=== PATIENT | male | born 1945 | race Caucasian/White ===

== ENCOUNTER 2017-01-30 06:02 | Day surgery (SDC) | payer MEDICARE ==
[~2017-01-30 06:02] MED LIST: Buffered Lidocaine 0.9% SYRIN* 5 ML/SYR SYRINGE INTRADERM ONE
[2017-01-30] MEDS ORDERED: ceFAZolin 2 GM PREMIX (*) 2 GM/50 ML BAG IVPB ONE (06:10)
[2017-01-30] MEDS ORDERED: Bupivacaine 0.25% W/EPI* 50 ML VIAL ONE (07:02)
[2017-01-30] MEDS ORDERED: Methylene Blue 0.5 %* 50 MG/10 ML AMP IV ONE (07:02)
[2017-01-30] MEDS ORDERED: Mineral Oil Sterile, TOPICAL* 25 ML BTL ONE (07:03)
[2017-01-30] MEDS ORDERED: Lidocaine 1.5% EPI 1:200,000* 30 ML SDV ONE (07:08)
[2017-01-30] MEDS ORDERED: BSS OPTH.SOL* BTL ONE (07:51)
[2017-01-30] MEDS ORDERED: fentaNYL* 50 MCG/ML 2 ML VIAL (100 MCG VIAL) ONE (07:53)
[2017-01-30] MEDS ORDERED: Midazolam* 1 MG/ML 2 ML VIAL (2 MG) ONE (07:53)
[2017-01-30] MEDS ORDERED: Propofol* 10 MG/ML 20 ML BTL IV PUSH ONE ×3 (08:04→11:07)
[2017-01-30] MEDS ORDERED: Lidocaine 2% PF * 5 ML VIAL ONE (08:04)
[2017-01-30 13:32] VITALS: BP 134/74
== END 2017-01-30 13:37 | disposition home or self-care (01) ==
LOC: OR 06:02
PROVIDERS: ATTEND Plastic Surgery
DX: C44.319 Basal cell carcinoma of skin of other parts of face (principal); L82.1 Other seborrheic keratosis; I48.91 Unspecified atrial fibrillation; Z79.01 Long term (current) use of anticoagulants; G47.30 Sleep apnea, unspecified; Z87.891 Personal history of nicotine dependence; N18.9 Chronic kidney disease, unspecified
CPT/HCPCS: 88305; 88331; 88332; A9270-GY; J0690; J2250; J2704; J3010

== ENCOUNTER 2017-01-30 23:28 | Observation (INO) | payer MEDICARE ==
[2017-01-31] MEDS ORDERED: Midazolam* 1 MG/ML 5 ML VIAL (5 MG) ONE (00:21)
[2017-01-31] MEDS ORDERED: ceFAZolin 2 GM PREMIX(*) 2 GM/50 ML BAG IVPB ONE (00:31)
[2017-01-31] MEDS ORDERED: fentaNYL* 50 MCG/ML 2 ML VIAL (100 MCG VIAL) ONE ×2 (00:35→01:11)
[2017-01-31] MEDS ORDERED: Lidocaine 2% EPI 1:200000 MPF* 20 ML VIAL ONE (00:40)
[2017-01-31] MEDS ORDERED: Tetracaine 0.5% OPTH.SOL 15ML* BTL ONE (01:55)
[2017-01-31] MEDS ORDERED: Midazolam* 1 MG/ML 2 ML VIAL (2 MG) ONE (02:04)
[2017-01-31] MEDS ORDERED: Ondansetron INJ* 2 MG/ML VIAL IV PRN ×2 (02:32→04:16)
[2017-01-31] MEDS ORDERED: DiMENhydriNATE IV* 50 MG/ML VIAL IV PUSH PRN (02:32)
[2017-01-31] MEDS ORDERED: fentaNYL* 50 MCG/ML 2 ML VIAL (100 MCG VIAL) IV PRN (02:32)
[2017-01-31] MEDS ORDERED: HYDROcodone/ACETAMIN 5-325 MG* 1 TAB PO PRN (02:32)
[2017-01-31] MEDS ORDERED: Artificial Tear OPHTH.OINT* 3.5 GM ONE (02:51)
[2017-01-31] MEDS ORDERED: HYDROmorphone* 1 MG/ML 1 ML SYR IV PRN (04:16)
[2017-01-31] MEDS ORDERED: Acetaminophen SUPP* 650 MG SUPP PR PRN (04:16)
[2017-01-31] MEDS ORDERED: Albuterol 2.5 MG/3 ML NEB.SOL* (0.083%) INH PRN (04:16)
[2017-01-31] MEDS ORDERED: NS 0.9% 1000 ML* 1,000 ML IV SCH (04:30)
--- NOTE | 2017-01-31 04:43 | HP ---
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 He is seen upon arrival to the surgical stay unit and denies complaints. Pain is controlled, no nausea, or other issues. Per Dr Fabian, ophthalmology has evaluated the patient without clinically relevant finding. PMedHx AFIB s/p ablation aortic stenosis, planning surgery HLD MELVIN on CPAP OA B knees Ambulatory Orders Metoprolol Tartrate [Lopressor] 50 mg PO QAM 05/07/15 Rosuvastatin Calcium [Crestor] 20 mg PO EVERY OTHER DAY 05/07/15 Warfarin TAB(*) [Coumadin TAB(*)] 5 tab PO QPM 05/07/15 celeCOXIB CAP* [Celebrex CAP*] 100 mg PO DAILY PRN 05/07/15 Potassium Chlor TAB* [Potassium Chlor TAB 20 MEQ*] 20 mcg PO QAM 09/11/15 Spironolactone TAB* [Aldactone TAB 25 MG*] 25 mg PO SEE INSTRUCTIONS 09/11/15 Diazepam TAB(*) [Valium TAB(*)] 10 mg PO Q8H PRN 12/06/16 Dofetilide CAP* [Tikosyn CAP*] 125 mcg PO BID 12/06/16 Torsemide TAB* [Demadex*] 20 mg PO SEE INSTRUCTIONS 12/06/16 Allergies No Known Allergies Allergy (Verified 01/23/17 11:50) PSurgHx ORIF RUE cardiac ablation R facial BCC excision with flap reconstruction 01/30/2017 R facial hematoma evacuation 01/31/2017 SocHx: former smoker, no alcohol or recreational drugs; , lives with his ; practicing dentist; full code status FamHx: positive for CAD, CVA, HTN ROS: as above, otherwise reviewed and all were negative Constitutional: NAD, normally developed, overweight white male vitals: Vital Signs Temp 37.1 C 01/31/17 03:05 Pulse 79 01/31/17 03:15 Resp 16 01/31/17 04:23 BP 135/75 01/31/17 03:15 Pulse Ox 96 01/31/17 03:05 Intake & Output 01/30/17 01/30/17 01/31/17 11:59 23:59 11:59 Intake Total 2200 Output Total 200 Balance 2000 Intake: IV Fluids 2200 NS 200 lr 1999 Output: Estimated Blood Loss 200 HEENM: post-op dressings clean & dry; blephara: acute ecchymosis R; hearing: clinically intact; oropharynx: clear, mucosa moist Neck: soft tissue: non-tender; thyroid: unable to examine 2nd dressings Pulmonary: clear to auscultation bilaterally, good aeration, no accessory muscle use CV: RR/RR, normal S1S2, 2/5 systolic murmur, no jugular venous distention, 2+ B DP/PT, no edema Abdominal: soft, non-distended, non-tender, no rebound/guarding/rigidity, normoactive bowel sounds, no hepatosplenomegaly or masses, no costovertebral angle tenderness Musculoskeletal: general: grossly intact; gait: stable Integumental: as above, otherwise normal appearance and texture of exposed skin Psychiatric orientation: AA&O to PPS affect: calm mood: pleasant eye contact: good content: reliable responses: timely insight: good Testing: Lab Results 01/31/17 Range/Units 00:09 INR (Anticoag Therapy) 1.07 (0.89-1.11) Impression: 71M presenting from Katia Fabian MD's office for post-op basal cell excision complicated by hemorrhage requiring exploration, evacuation, & hemostasis DIAGNOSIS & PLAN Primary post-op basal cell excision complicated by hemorrhage requiring exploration, evacuation, & hemostasis : pain control : Katia Fabian MD plastic surgery managing; anticipates D/C home in AM Secondary AFIB : continue meds once reconciled : restart warfarin deferred to surgery HLD : continue rosuvastatin once reconciled MELVIN : unable to use CPAP until incision healed Admission Rational: observation for post-op hematoma formation DVTp: SCDs Code Status: full HCP:
[2017-01-31] MEDS: Pantoprazole IV* 40 MG IV SCH (09:20)
--- NOTE | 2017-01-31 09:35 | PN ---
Subjective Date of Service: 01/31/17 Interval History: Patient seen and examined at bedside. Pt states that he is feeling well this AM. Denies fever, chills, shortness of breath, chest discomfort, N/V/D. Pt is able to open his right eye a small amount with his fingers and notes some blurry vision. He states that the swelling in his face has improved. Family History: Unchanged from Admission Social History: Unchanged from Admission Past Medical History: Unchanged from Admission Objective Active Medications: Acetaminophen (Tylenol Supp*) 650 mg [place] Q6H PRN Reason: FEVER/PAIN Albuterol (Ventolin 2.5 Mg/3 Ml Neb.Erika*) 2.5 mg INH Q2H PRN Reason: SOB/ WHEEZING Hydromorphone HCl (Dilaudid Iv*) 0.5 mg IV Q4H PRN Reason: PAIN Sodium Chloride (Ns 0.9% 1000 Ml*) 1,000 mls @ 100 mls/hr IV PER RATE [facility] Ondansetron HCl (Zofran Inj*) 4 mg IV Q6H PRN Reason: NAUSEA Pantoprazole Sodium (Protonix Iv*) 40 mg IV DAILY [facility] Vital Signs 01/31/17 01/31/17 01/31/17 03:00 03:05 03:15 Temperature 98.8 F 98.8 F Pulse Rate 80 85 79 Respiratory 12 16 16 Rate Blood Pressure 147/83 149/85 135/75 (mmHg) O2 Sat by Pulse 96 96 Oximetry 01/31/17 01/31/17 01/31/17 03:40 04:23 05:48 Temperature 98.9 F 98.3 F Pulse Rate 79 74 Respiratory 16 16 16 Rate Blood Pressure 134/56 160/89 (mmHg) O2 Sat by Pulse 96 95 Oximetry 01/31/17 01/31/17 01/31/17 06:31 07:39 08:30 Temperature 98.2 F 98.6 F Pulse Rate 92 79 82 Respiratory 16 11 16 Rate Blood Pressure 159/95 131/71 (mmHg) O2 Sat by Pulse 95 96 95 Oximetry Oxygen Devices in Use Now: None Appearance: NAD, sitting up in bed Eyes: - - Unable to open right eye due to swelling Ears/Nose/Mouth/Throat: Mucous Membranes Moist Respiratory: Symmetrical Chest Expansion and Respiratory Effort, Clear to Auscultation Cardiovascular: RRR, - - Grade 2-3/6 systolic murmur heard at the right sternal border, radiating across the precordium Abdominal: NL Sounds; No Tenderness; No Distention Extremities: No Edema Skin: No Rash or Ulcers, - - Large amount of ecchymosis to right side of face, geraldo drain in place Neurological: Alert and Oriented x 3, NL Muscle Strength and Tone Lines/Tubes/Other Access: Clean, Dry and Intact Peripheral IV - site benign Nutrition: Taking PO's Result Diagrams: 01/31/17 10:14 01/31/17 10:14 Assess/Plan/Problems-Billing Assessment: Mr. Cee is a 71 yo male with PMH significant for Afib, aortic stenosis, HLD, MELVIN, and basal cell CA who was S/P excision of basal cell CA from right cheek on 01/30/17 and returned for a postoperative hemorrhage and is now S/P exploration and evacuation of hematoma. - Patient Problems (1) Basal cell carcinoma of cheek Code(s): C44.319 - BASAL CELL CARCINOMA OF SKIN OF OTHER PARTS OF FACE SNOMED Code(s): 632201280 Comment: - S/P excision complicated by hemorrhage requiring exploration, evacuation and hemostasis - POD, management per Dr. Fabian - Pain management (2) Afib Code(s): I48.91 - UNSPECIFIED ATRIAL FIBRILLATION SNOMED Code(s): 30260721 Comment: - Heart rate controlled - Resume warfarin when ok per surgery - Continue Metoprolol and Tikosyn (3) HLD (hyperlipidemia) Code(s): E78.5 - HYPERLIPIDEMIA, UNSPECIFIED SNOMED Code(s): 86614166 Comment: - Continue statin (4) MELVIN (obstructive sleep apnea) Code(s): G47.33 - OBSTRUCTIVE SLEEP APNEA (ADULT) (PEDIATRIC) SNOMED Code(s): 41510533 Comment: - Unable to use CPAP until incision is healed (5) DVT prophylaxis Code(s): HDG1621 - SNOMED Code(s): 729518778 Comment: - SCDs (6) Full code status Code(s): Z78.9 - OTHER SPECIFIED HEALTH STATUS SNOMED Code(s): 987937621 Status and Disposition: OBV. Disposition per surgery. Discharge to home when medically stable, possibly in the morning.
[2017-01-31 10:21] LABS: Hematocrit 33 % (42-52); Hemoglobin 10.6 g/dl (14.0-18.0); Mean Corpuscular HGB Conc 32 g/dl (31-36); Mean Corpuscular Hemoglobin 28 pg (27-31); Mean Corpuscular Volume 87 fL (80-94); Mean Platelet Volume 8 um3 (7.4-10.4); Red Blood Count 3.77 10^6/ul (4.0-5.4); Red Cell Distribution Width 15 % (10.5-15); White Blood Count 8.6 10^3/ul (3.5-10.8)
[2017-01-31] MEDS ORDERED: Spironolactone TAB* 25 MG PO SCH ×2 (10:30)
[2017-01-31] MEDS: Dofetilide CAP* 125 MCG PO SCH ×2 (10:38→21:13)
[2017-01-31] MEDS: Metoprolol Succinate XL TAB* 50 MG PO SCH (10:39)
[2017-01-31 10:42] LABS: BUN/Creatinine Ratio 16.7 (8-20); Calcium 8.6 mg/dL (8.6-10.3); EGFR African American 99.6 (>60); EGFR Non-African American 77.4 (>60); Potassium 4.1 mmol/L (3.5-5.0)
[2017-01-31] MEDS ORDERED: Mupirocin 2% OINT* TUBE TOPICAL SCH (11:00)
--- NOTE | 2017-01-31 17:03 | CONS ---
PLASTIC SURGERY PROGRESS NOTE: DATE: 01/31/17 SUBJECTIVE: The patient reports minimal pain in the right cheek and lower lid area. He has had some oozing from the region of the drain site behind the right ear. He has urinated twice. He reports that when he lifts right upper eye lid, he can see with his right eye. OBJECTIVE: The patient is noted to be alert and cooperative, in no acute distress. Vital Signs: Stable except for mild hypertension. Examination of the facial area demonstrates moderately severe ecchymosis and swelling of the right periorbital area and right cheek, but the eyelids and cheek are soft. There is moderate bloody drainage on the dressing around the retroauricular [place] drain site noted. No active bleeding is noted. INR from last night was 1.03. IMPRESSION: The patient is status post exploration and drainage of postop hematoma, his right cheek and lower eyelid late last night, early this morning. He is progressing satisfactorily. RECOMMENDATIONS: I have recommended that he continue to keep his head elevated and restrict activity. I have written wound care orders. Coumadin is still being held for now. I recommend to continue to keep him in the hospital today for observation and with plans for probable discharge tomorrow. Medical management per the hospitalist service. [id number]/[facility] #: [id number] ZARI
[2017-01-31] MEDS: Mupirocin 2% OINT* TUBE TOPICAL SCH (21:18)
[2017-02-01 05:29] LABS: Hematocrit 32 % (42-52); Hemoglobin 10.4 g/dl (14.0-18.0)
[2017-02-01 05:30] LABS: Comments Flag Yes
--- NOTE | 2017-02-01 05:35 | OP ---
CC: Dr. Helm; Dr. Calles OPERATIVE REPORT: DATE OF OPERATION: 01/31/17 DATE OF : 47 SURGEON: Rodolfo Fabian MD ANESTHESIOLOGIST: Dr. Fatima. ANESTHESIA: Local, MAC. PRE-OP DIAGNOSIS: Postoperative hematoma, right cheek and eyelids. POST-OP DIAGNOSIS: Postoperative hematoma, right cheek and eyelids. OPERATIVE PROCEDURE: Exploration and drainage of hematoma, right cheek and lower eyelid. ESTIMATED BLOOD LOSS: 200 cc. SPECIMENS: None. DRAINS: One small [place] drain. FLUIDS GIVEN: 2 L crystalloid. INDICATION OF SURGERY: The patient is a 71-year-old white male with history of atrial fibrillation, on Coumadin, who presented with a moderate size basal cell carcinoma in his right medial infraorbit al cheek area. I took him to the operating room on 01/30/17 and did a 3-stage excision of the basal cell carcinoma with frozen sections, resulting in extensive defect in the right medial lower eyelid and infraorbital cheek area. This was reconstructed with a cervicofacial flap. The patient's INR on 01/29/17 was approximately 1.2. Intraoperatively, there appeared to be a normal amount of oozing from the raw surfaces. Satisfactory hemostasis was obtained at the end of the procedure. Patient had some mild oozing from the incision lines in the recovery room, but this was felt to be normal. Patient was discharged home. He called me later in the afternoon complaining of some increased swel ling in the lower eyelid. He stated that the eyelid was starting to swell shut. He denied any pain in the eye or visual disturbance. He stated that the swelling was soft and spongy. He called me l ater that night, however, with worsening swelling and bruising and the eyes swollen shut. I had him come to my office and examined him. There was extensive diffuse swelling and ecchymosis of the upp er and lower eyelids and right cheek, which was moderately firm, consistent with a hematoma. He was sent to [facility] Emergency Room and then taken to the operating room for exploration a nd drainage of the hematoma. DESCRIPTION OF PROCEDURE: Patient was brought to the operating room and placed in the supine positi on. Intravenous sedation was given by Dr. Fatima. The facial area was prepped with Betadine and dr love sterilely. Sutures were removed from the incision lines on the cheek and eyelid. Extensive am ount of clotted blood was evacuated under the entire flap. A small pulsatile arterial bleeder was i dentified, probably a branch of the facial artery, lateral to the mid nose level. This was controlle d with suture ligatures of 4-0 Vicryl. There was some diffuse oozing of the wound margins and wound base and undersurface of the flap as well. This was controlled with electrocautery. Patient had ex tensive circumferential chemosis of the right eye, but still had vision present and denied eye pain. An intraoperative ophthalmology consultation was obtained with Dr. Jw Helm, who came to the operating room and examined the patient and performed tonometry with a Maksim-Pen. The measurements were 26, 27, and 22 mmHg in the right eye. Dr. Helm felt that these were basically normal press ures and did not feel that the patient needed a lateral canthotomy or inferior cantholysis. Wound w as irrigated with copious saline solution. Hemostasis was obtained with fine-point bipolar electroc autery and Floseal. The flap was then rotated back into position and sutured with buried fascial alexander bcutaneous and deep dermal sutures of 4-0 and 5-0 Vicryl. Because of the amount of swelling and yoshi ma, I was not able to close the medial [place]hal area and ended up leaving an approximately 1 x 2.5 cm area open. Skin was closed in the remaining areas with running and interrupted sutures of 6-0 and 5 -0 nylon. A small Josh drain was placed on to the flap and brought out through small incision in the retro-lobular area of the neck. Hemostasis was noted to be satisfactory. The wounds were dres sed with Xeroform gauze, fluff gauze, and circumferential head wrap dressing. The patient tolerated the procedure well. There were no complications. All counts were reported as correct in the procedure. Patient was taken to the recovery area in stable postoperative condition . [id number]/[facility] #: [id number]
[2017-02-01 08:00] VITALS: BP 119/67
[2017-02-01] MEDS: Pantoprazole IV* 40 MG IV SCH (08:40)
[2017-02-01] MEDS: Mupirocin 2% OINT* TUBE TOPICAL SCH (08:44)
[2017-02-01] MEDS: Dofetilide CAP* 125 MCG PO SCH (08:44)
[2017-02-01] MEDS: Metoprolol Succinate XL TAB* 50 MG PO SCH (08:44)
[2017-02-01] MEDS ORDERED: Potassium Chlor TAB* 20 MEQ TAB.ER PO SCH (09:00)
--- NOTE | 2017-02-01 11:30 | PN ---
Subjective Date of Service: 02/01/17 Interval History: Patient seen and examined at bedside. Pt states that he is feeling well. Denies fever, chills, shortness of breath, chest discomfort, N/V/D. Pt feels that the swelling to the right side of his face has improved. Family History: Unchanged from Admission Social History: Unchanged from Admission Past Medical History: Unchanged from Admission Objective Active Medications: Acetaminophen (Tylenol Supp*) 650 mg [place] Q6H PRN Reason: FEVER/PAIN Albuterol (Ventolin 2.5 Mg/3 Ml Neb.Erika*) 2.5 mg INH Q2H PRN Reason: SOB/ WHEEZING Atorvastatin Calcium (Lipitor*) 40 mg PO EVERY OTHER DAY@0900 [facility] Dofetilide (Tikosyn Cap*) 125 mcg PO BID [facility] Hydromorphone HCl (Dilaudid Iv*) 0.5 mg IV Q4H PRN Reason: PAIN Sodium Chloride (Ns 0.9% 1000 Ml*) 1,000 mls @ 100 mls/hr IV PER RATE [facility] Metoprolol Succinate (Toprol Xl Tab*) 50 mg PO DAILY [facility] Mupirocin (Bactroban 2 % Oint*) 1 applic TOPICAL BID [facility] Ondansetron HCl (Zofran Inj*) 4 mg IV Q6H PRN Reason: NAUSEA Pantoprazole Sodium (Protonix Iv*) 40 mg IV DAILY [facility] Potassium Chloride (Klor Con Er Tab*) 20 meq PO QAM [facility] Spironolactone (Aldactone Tab*) 25 mg PO SuWe@0900 [facility] Torsemide (Demadex*) 20 mg PO TuFr@0900 [facility] Vital Signs 01/31/17 01/31/17 01/31/17 15:26 19:37 20:25 Temperature 98.8 F 98.8 F Pulse Rate 73 82 Respiratory 16 16 16 Rate Blood Pressure 125/74 128/71 (mmHg) O2 Sat by Pulse 98 98 Oximetry 01/31/17 02/01/17 02/01/17 23:58 02:11 03:19 Temperature 98.7 F 98.7 F Pulse Rate 74 16 79 Respiratory 18 98 18 Rate Blood Pressure 127/70 135/76 (mmHg) O2 Sat by Pulse 95 98 94 Oximetry 02/01/17 02/01/17 02/01/17 07:42 08:00 08:01 Temperature 98.5 F Pulse Rate 81 81 Respiratory 13 13 13 Rate Blood Pressure 119/67 (mmHg) O2 Sat by Pulse 95 95 95 Oximetry Oxygen Devices in Use Now: None Appearance: NAD, sitting up in bed Ears/Nose/Mouth/Throat: Mucous Membranes Moist Respiratory: Symmetrical Chest Expansion and Respiratory Effort, Clear to Auscultation Cardiovascular: NL Sounds; No Murmurs; No JVD, RRR Abdominal: NL Sounds; No Tenderness; No Distention Extremities: No Edema Skin: No Rash or Ulcers, - - Ecchymosis to right side of face, Incision to right cheek well approximated with sutures intact Neurological: Alert and Oriented x 3, NL Muscle Strength and Tone Nutrition: Taking PO's Result Diagrams: 02/01/17 05:18 01/31/17 10:14 Assess/Plan/Problems-Billing Assessment: Mr. Cee is a 71 yo male with PMH significant for Afib, aortic stenosis, HLD, MELVIN, and basal cell CA who was S/P excision of basal cell CA from right cheek on 01/30/17 and returned for a postoperative hemorrhage and is now S/P exploration and evacuation of hematoma. - Patient Problems (1) Basal cell carcinoma of cheek Code(s): C44.319 - BASAL CELL CARCINOMA OF SKIN OF OTHER PARTS OF FACE SNOMED Code(s): 106158709 Comment: - S/P excision complicated by hemorrhage requiring exploration, evacuation and hemostasis - POD #1, management per Dr. Fabian - HH stable - Pain management (2) Afib Code(s): I48.91 - UNSPECIFIED ATRIAL FIBRILLATION SNOMED Code(s): 45393551 Comment: - Heart rate controlled - Resume warfarin tonight, check INR on Sunday - Continue Metoprolol and Tikosyn (3) HLD (hyperlipidemia) Code(s): E78.5 - HYPERLIPIDEMIA, UNSPECIFIED SNOMED Code(s): 41065094 Comment: - Continue statin (4) MELVIN (obstructive sleep apnea) Code(s): G47.33 - OBSTRUCTIVE SLEEP APNEA (ADULT) (PEDIATRIC) SNOMED Code(s): 58259498 Comment: - Unable to use CPAP until incision is healed (5) DVT prophylaxis Code(s): PCW0367 - SNOMED Code(s): 215563397 Comment: - SCDs (6) Full code status Code(s): Z78.9 - OTHER SPECIFIED HEALTH STATUS SNOMED Code(s): 535858702 Status and Disposition: OBV. Disposition per surgery. Stable for discharge to home today.
--- NOTE | 2017-02-02 05:13 | DS ---
CC: Dr. Rodolfo Fabian; Dr. Jw Helm; Dr. Mukesh Calles * DISCHARGE SUMMARY: DATE OF ADMISSION: 01/31/17 DATE OF DISCHARGE: 02/01/17 ATTENDING PHYSICIAN: Dr. James Lin *(dictated by Ann Ignacio NP) PRIMARY CARE PHYSICIAN: Dr. Mukesh Calles. PRIMARY DIAGNOSES: Status post excision of basal cell carcinoma from the right cheek with postoperative hemorrhage, status post exploration, evacuation, and hemostasis by Dr. Fabian. SECONDARY DIAGNOSES: 1. Atrial fibrillation. 2. Aortic stenosis. 3. Hyperlipidemia. 4. Obstructive sleep apnea. 5. Osteoarthritis. CONSULTATIONS WHILE IN THE HOSPITAL: 1. Dr. Jw Helm with Ophthalmology. 2. Dr. Rodolfo Fabian with Plastic Surgery. PROCEDURE WHILE IN THE HOSPITAL: Status post exploration and drainage of hematoma of the right cheek and lower eyelid on 01/31/[address] Fabian. DISCHARGE MEDICATIONS: New home medication: Mupirocin 2% ointment apply topical twice daily to right cheek. Continued home medications: 1. Celebrex 100 mg oral daily as needed for pain. 2. Warfarin 5 mg oral every evening. 3. Crestor 20 mg oral every other day. 4. Spironolactone 25 mg oral on Sundays and Wednesdays. 5. Potassium chloride 20 mEq oral every morning. 6. Torsemide 20 mg oral daily on Tuesdays and Fridays. 7. Diazepam 10 mg oral every 8 hours as needed for anxiety. 8. Tikosyn 125 mcg oral twice daily. 9. Acetaminophen 650 mg oral every 6 hours as needed for pain. 10. Metoprolol succinate 50 mg oral daily. HISTORY OF PRESENT ILLNESS: Mr. Cee is a 71-year-old male with past medical history significant for atrial fibrillation, aortic stenosis, hyperlipidemia, obstructive sleep apnea, who presented to the hospital for excision of a basal cell carcinoma on his right cheek and reconstruction. Postoperatively, the patient developed a hematoma requiring the patient to return to the operating room for exploration and evacuation, and hemostasis. The surgical procedure was performed by Dr. Fabian and the patient was also evaluated by Dr. Jw Helm with Ophthalmology to evaluate the patient's eye. The patient's swelling improved over the course of his admission, although he had a large amount of ecchymosis to the right side of his face. The patient's pain was controlled. He was monitored overnight and felt to be stable for discharge and per Plastic Surgery, it was okay to resume his warfarin. The patient's periorbital hematoma has decreased in size during his stay. He was also seen and followed up again last evening by Dr. Helm. The patient is able to open his eye manually with his fingers and states that he does have some mild blurry vision through his right eye. Mr. Cee is stable for discharge to home today. Vital signs are as follows: Temperature 98.5, heart rate 81, respiratory rate 13, O2 sat 95% on room air, blood pressure 119/67. DISCHARGE PLAN: Mr. Cee will be discharged to home. ACTIVITY: Light activity as tolerated. DIET: Regular diet. The patient has a followup appointment with Dr. Fabian for suture removal on 02/05/17, at 4:45 p.m. He also has an appointment with Dr. Helm with Ophthalmology on 02/05/17, at 3:15 p.m. to evaluate his eye due to the periorbital hematoma. The patient should be seen by his primary care provider in the next 2 weeks. He has been asked to call to setup an appointment with Dr. Calles. The patient as far as his atrial fibrillation has been continued on his home metoprolol and Tikosyn and has resumed his warfarin. He has been instructed to get an INR checked on Sunday and await results from Dr. Quintanilla's office before he takes a his Sunday does of Warfarin. The patient 's has been instructed to follow the face and eyelid surgery instructions that were given to him at [facility]Day Surgery on 01/30/17. The patient has been asked to return to the emergency room for any shortness of breath or chest discomfort. This is a summarized report of a complex medical history and hospital stay. For further details, please see the entire medical record. TIME SPENT: Time for this discharge was approximately 45 minutes and greater than half of that was spent with the patient discussing discharge plans and instructions. CONDITION ON DISCHARGE: Stable. Reviewed by JAYMIE ARIAS 02/02/17 1800 [id number]/[facility] #: [id number] ZARI
[2017-02-02] MEDS ORDERED: Torsemide TAB* 20 MG PO SCH (09:00)
[2017-02-02] MEDS ORDERED: Atorvastatin* 40 MG TAB PO SCH (09:00)
== END 2017-02-01 12:17 | disposition home or self-care (01) ==
LOC: OR 23:28 → SSU 01-31 03:49
PROVIDERS: ADMIT Plastic Surgery; ATTEND Plastic Surgery
DX: L76.32 Postprocedural hematoma of skin and subcutaneous tissue following other procedure (principal); I35.0 Nonrheumatic aortic (valve) stenosis; I48.91 Unspecified atrial fibrillation; Z79.01 Long term (current) use of anticoagulants; G47.33 Obstructive sleep apnea (adult) (pediatric)
CPT/HCPCS: 36415; 80048; 85014; 85018; 85025; 85610; 94760; A9270-GY; G0378; J0690; J2250; J3010

== ENCOUNTER → 2017-07-01 16:29 | Emergency (ER) | payer BC, MEDICARE ==
[~2017-07-01 16:29] MED LIST changes: -Buffered Lidocaine 0.9% SYRIN* 5 ML/SYR SYRINGE INTRADERM ONE; +Phytonadione INJ (Adult)* 10 MG/ML 1 ML AMP IM ONE; +Phytonadione INJ (Adult)* 10 MG/ML 1 ML AMP IV ONE; +Phytonadione INJ* 1 MG/0.5 ML ML IM ONE
[2017-07-01 17:20] LABS: ABS Basophils 0 10^3/ul (0-0.2); ABS Eosinophils 0.1 10^3/ul (0-0.6); ABS Lymphocytes 0.6 10^3/ul (1.0-4.8); ABS Monocytes 0.6 10^3/ul (0-0.8); ABS Neutrophils 5.2 10^3/ul (1.5-7.7); ABS Nucleated RBC 0.01 10^3/ul; Hematocrit 16 % (42-52); Lymphocyte % 9.6 % (25-47); Mean Corpuscular HGB Conc 32 g/dl (31-36); Mean Corpuscular Hemoglobin 25 pg (27-31); Mean Corpuscular Volume 79 fL (80-94); Mean Platelet Volume 7 um3 (7.4-10.4); Nucleated Red Blood Cells % 0.1; Platelet Count 212 10^3/ul (150-450); Red Blood Count 2.05 10^6/ul (4.0-5.4); Red Cell Distribution Width 18 % (10.5-15); White Blood Count 6.5 10^3/ul (3.5-10.8)
[2017-07-01 17:27] LABS: Hemoglobin 5.2 g/dl (14.0-18.0)
--- NOTE | 2017-07-01 17:29 | RAD ---
INDICATION: Chest pressure COMPARISON: Similar chest x-ray dated January 21, 2015 TECHNIQUE: Single AP portable view of the chest was obtained. FINDINGS: Image quality is compromised due to the relative inferiority of a portable chest x-ray. The heart and mediastinum exhibit normal size and contour. The lungs are grossly clear. There is no evidence of a large pleural effusion. There is gas seen beneath the heart crossing the midline upper abdomen and giving the appearance of crossing the lower midline mediastinum. This gas appears to be contained within a loop of bowel, likely colon. IMPRESSION: 1. No radiographic evidence for acute cardiopulmonary abnormality on this portable chest x-ray. 2. Gas is seen crossing the lower upper abdomen which appears to be located within bowel, most likely colon. Recommend dedicated PA and lateral chest x-ray for superior characterization.
[2017-07-01 17:35] LABS: EGFR Non-African American 47.2 (>60)
[2017-07-01 20:43] LABS: INR 2.55 (0.77-1.02)
--- NOTE | 2017-07-01 21:06 | ED ---
Juan A Pinto Julia, scribed for Brett Barnett MD on 07/01/17 at 1710 . HPI Chest Pain - HPI Summary HPI Summary: This patient is a 72 year old M BIBA to [facility] with a chief complaint of intermittent chest pain characterized as pressure since this morning. The patient rates the pain 0/10 in severity. Symptoms aggravated by nothing. Symptoms are spontaneously alleviated. 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 Patient denies blood in stool and sweating. 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, dark stool but no BM for a day, and disorientation - Additional Pertinent History Primary Care Physician: JOVANY - Allergy/Home Medications Allergies/Adverse Reactions: Allergies Allergy/AdvReac Type Severity Reaction Status Date / Time No Known Allergies Allergy Verified 01/23/17 11:50 PMH/Surg Hx/FS Hx/Imm Hx Endocrine/Hematology History: Denies: Hx Diabetes Cardiovascular History: Reports: Hx Coronary Artery Disease, Hx Hypertension, Hx Valvular Heart Disease - aortic valve stenosis, mild, cardiac ablation 08/2015 , Other Cardiovascular Problems/Disorders - cardiac catherization 05/2015 Denies: Hx Pacemaker/ICD Respiratory History: Reports: Hx Sleep Apnea History: Reports: Hx Kidney Stones - 1 stone 10 years ago Denies: Hx Renal Disease Musculoskeletal History: Reports: Hx Arthritis Sensory History: Reports: Hx Contacts or Glasses Denies: Hx Hearing Aid Opthamlomology History: Reports: Hx Contacts or Glasses Psychiatric History: Reports: Hx Anxiety - prn meds Denies: Hx Panic Disorder - Cancer History Hx Chemotherapy: No - Surgical History Surgery Procedure, Year, and Place: Rt KNEE-1993. Rt ARM - 1976 - FX'D ARM - PINS & SCREWS Hx Anesthesia Reactions: No Infectious Disease History: Denies: History Other Infectious Disease - Family History Known Family History: Positive: Cardiac Disease - CHF - paternal - Social History Alcohol Use: None Hx Substance Use: No Substance Use Type: Reports: None Hx Tobacco Use: Yes Smoking Status (MU): Former Smoker Amount Used/How Often: off and on 8-10 years 1/2-1ppd Review of Systems Positive: Other - disoriented. Negative: Skin Diaphoresis Gastrointestinal: Other - negative - bloody stool Positive: Other - dark stool and no BM for 1 day Positive: Other - bilateral knee arthritis All Other Systems Reviewed And Are Negative: Yes Physical Exam - Summary Physical Exam Summary: Appearance: The patient is well-nourished in no acute distress and in no acute pain. Skin: The skin is warm and dry and skin color reflects adequate perfusion. HEENT: The head is normocephalic and atraumatic. The pupils are equal and reactive. The conjunctivae are clear and without drainage. Nares are patent and without drainage. Mouth reveals moist mucous membranes and the throat is without erythema and exudate. The external ears are intact. The ear canals are patent and without drainage. The tympanic membranes are intact. Neck: the neck is supple with full range of motion and non-tender. There are no carotid bruits. There is no neck vein distension. Respiratory: Chest is non-tender. Lungs are clear to auscultation and breath sounds are symmetrical and equal. Cardiovascular: Heart is regular rate and rhythm. There is a harsh diastolic ejection murmur, but no rub auscultated. There is no peripheral edema and pulses are symmetrical and equal. Abdomen: The abdomen is soft and non-tender. There are normal bowel sounds heard in all four quadrants and there is no organomegaly palpated. Musculoskeletal: There is no back tenderness noted. Extremities are non-tender with full range of motion. There is good capillary refill. There is no peripheral edema or calf tenderness elicited. Neurological: Patient is alert and oriented to person, place and time. The patient has symmetrical motor strength in all four extremities. Cranial nerves are grossly intact. Deep tendon reflexes are symmetrical and equal in all four extremities. Psychiatric: The patient has an appropriate affect and does not exhibit any anxiety or depression. Triage Information Reviewed: Yes Vital Signs On Initial Exam: Initial Vitals Pulse Pulse Ox 71 93 07/01/17 16:41 07/01/17 16:41 Vital Signs Reviewed: Yes Diagnostics - Vital Signs Vital Signs Temp Pulse Resp BP Pulse Ox 07/01/17 19:00 87 13 107/60 100 07/01/17 18:45 84 13 109/53 100 07/01/17 18:30 84 11 102/57 100 07/01/17 18:15 83 14 103/57 99 07/01/17 18:00 86 10 104/53 99 07/01/17 17:45 84 14 105/66 99 07/01/17 17:30 82 16 108/60 100 07/01/17 17:20 100 07/01/17 17:16 98.8 F 84 14 101/53 100 07/01/17 17:15 100 07/01/17 17:14 87 21 101/53 97 07/01/17 17:04 89/49 07/01/17 17:00 79 12 79/48 99 07/01/17 16:46 89 97/55 100 07/01/17 16:41 71 93 - Laboratory Lab Results: Lab Results 07/01/17 07/01/17 07/01/17 Range/Units 17:05 17:05 17:05 WBC 6.5 (3.5-10.8) 10^3/ul RBC 2.05 L (4.0-5.4) 10^6/ul Hgb 5.2 L* (14.0-18.0) g/dl Hct 16 L (42-52) % MCV 79 L (80-94) fL MCH 25 L (27-31) pg MCHC 32 (31-36) g/dl RDW 18 H (10.5-15) % Plt Count 212 (150-450) 10^3/ul MPV 7 L (7.4-10.4) um3 Neut % (Auto) 80.1 (38-83) % Lymph % (Auto) 9.6 L (25-47) % Maverick % (Auto) 8.6 (1-9) % Eos % (Auto) 1.0 (0-6) % Baso % (Auto) 0.7 (0-2) % Absolute Neuts (auto) 5.2 (1.5-7.7) 10^3/ul Absolute Lymphs (auto) 0.6 L (1.0-4.8) 10^3/ul Absolute Monos (auto) 0.6 (0-0.8) 10^3/ul Absolute Eos (auto) 0.1 (0-0.6) 10^3/ul Absolute Basos (auto) 0 (0-0.2) 10^3/ul Absolute Nucleated RBC 0.01 10^3/ul Nucleated RBC % 0.1 INR (Anticoag Therapy) (0.77-1.02) Sodium 137 (133-145) mmol/L Potassium 4.3 (3.5-5.0) mmol/L Chloride 109 (101-111) mmol/L Carbon Dioxide 22 (22-32) mmol/L Anion Gap 6 (2-11) mmol/L BUN 42 H (6-24) mg/dL Creatinine 1.47 H (0.67-1.17) mg/dL Est GFR ( Amer) 60.7 (>60) Est GFR (Non-Af Amer) 47.2 (>60) BUN/Creatinine Ratio 28.6 H (8-20) Glucose 116 H (70-100) mg/dL Lactic Acid (0.5-2.0) mmol/L Calcium 7.9 L (8.6-10.3) mg/dL Total Bilirubin 0.20 (0.2-1.0) mg/dL AST 23 (13-39) U/L ALT 17 (7-52) U/L Alkaline Phosphatase 44 (34-104) U/L Troponin I 0.05 H* (<0.04) ng/mL B-Natriuretic Peptide 109 H ( - 100) pg/mL Total Protein 5.4 L (6.4-8.9) g/dL Albumin 3.2 (3.2-5.2) g/dL Globulin 2.2 (2-4) g/dL Albumin/Globulin Ratio 1.5 (1-3) Blood Type Antibody Screen Crossmatch 07/01/17 07/01/17 07/01/17 Range/Units 17:05 17:05 17:05 WBC (3.5-10.8) 10^3/ul RBC (4.0-5.4) 10^6/ul Hgb (14.0-18.0) g/dl Hct (42-52) % MCV (80-94) fL MCH (27-31) pg MCHC (31-36) g/dl RDW (10.5-15) % Plt Count (150-450) 10^3/ul MPV (7.4-10.4) um3 Neut % (Auto) (38-83) % Lymph % (Auto) (25-47) % Maverick % (Auto) (1-9) % Eos % (Auto) (0-6) % Baso % (Auto) (0-2) % Absolute Neuts (auto) (1.5-7.7) 10^3/ul Absolute Lymphs (auto) (1.0-4.8) 10^3/ul Absolute Monos (auto) (0-0.8) 10^3/ul Absolute Eos (auto) (0-0.6) 10^3/ul Absolute Basos (auto) (0-0.2) 10^3/ul Absolute Nucleated RBC 10^3/ul Nucleated RBC % INR (Anticoag Therapy) 2.55 H (0.77-1.02) Sodium (133-145) mmol/L Potassium (3.5-5.0) mmol/L Chloride (101-111) mmol/L Carbon Dioxide (22-32) mmol/L Anion Gap (2-11) mmol/L BUN (6-24) mg/dL Creatinine (0.67-1.17) mg/dL Est GFR ( Amer) (>60) Est GFR (Non-Af Amer) (>60) BUN/Creatinine Ratio (8-20) Glucose (70-100) mg/dL Lactic Acid 2.0 (0.5-2.0) mmol/L Calcium (8.6-10.3) mg/dL Total Bilirubin (0.2-1.0) mg/dL AST (13-39) U/L ALT (7-52) U/L Alkaline Phosphatase (34-104) U/L Troponin I (<0.04) ng/mL B-Natriuretic Peptide ( - 100) pg/mL Total Protein (6.4-8.9) g/dL Albumin (3.2-5.2) g/dL Globulin (2-4) g/dL Albumin/Globulin Ratio (1-3) Blood Type A Negative Antibody Screen Negative Crossmatch See Detail 07/01/17 Range/Units 20:00 WBC (3.5-10.8) 10^3/ul RBC (4.0-5.4) 10^6/ul Hgb (14.0-18.0) g/dl Hct (42-52) % MCV (80-94) fL MCH (27-31) pg MCHC (31-36) g/dl RDW (10.5-15) % Plt Count (150-450) 10^3/ul MPV (7.4-10.4) um3 Neut % (Auto) (38-83) % Lymph % (Auto) (25-47) % Maverick % (Auto) (1-9) % Eos % (Auto) (0-6) % Baso % (Auto) (0-2) % Absolute Neuts (auto) (1.5-7.7) 10^3/ul Absolute Lymphs (auto) (1.0-4.8) 10^3/ul Absolute Monos (auto) (0-0.8) 10^3/ul Absolute Eos (auto) (0-0.6) 10^3/ul Absolute Basos (auto) (0-0.2) 10^3/ul Absolute Nucleated RBC 10^3/ul Nucleated RBC % INR (Anticoag Therapy) (0.77-1.02) Sodium (133-145) mmol/L Potassium (3.5-5.0) mmol/L Chloride (101-111) mmol/L Carbon Dioxide (22-32) mmol/L Anion Gap (2-11) mmol/L BUN (6-24) mg/dL Creatinine (0.67-1.17) mg/dL Est GFR ( Amer) (>60) Est GFR (Non-Af Amer) (>60) BUN/Creatinine Ratio (8-20) Glucose (70-100) mg/dL Lactic Acid (0.5-2.0) mmol/L Calcium (8.6-10.3) mg/dL Total Bilirubin (0.2-1.0) mg/dL AST (13-39) U/L ALT (7-52) U/L Alkaline Phosphatase (34-104) U/L Troponin I 0.08 H* (<0.04) ng/mL B-Natriuretic Peptide ( - 100) pg/mL Total Protein (6.4-8.9) g/dL Albumin (3.2-5.2) g/dL Globulin (2-4) g/dL Albumin/Globulin Ratio (1-3) Blood Type Antibody Screen Crossmatch Result Diagrams: 07/01/17 17:05 07/01/17 17:05 Lab Statement: Any lab studies that have been ordered have been reviewed, and results considered in the medical decision making process. - Radiology CXR Radiology Interpretation Completed By: Radiologist - 1. No radiographic evidence for acute cardiopulmonary abnormality on this portable chest x-ray. 2. Gas is seen crossing the lower upper abdomen which appears to be located within bowel, most likely colon. Recommend dedicated PA and lateral chest x-ray for superior characterization. ED Physician has reviewed this report. 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 Quintanilla, to get his H&H checked. He didn't make the time until tonight when he started with chest pressure without associated symptoms. It went away in the ambulance. He is on coumadin and his INR is 2.55. His H&H is 5.2 & 16. We have no GI coverage for the holidays so Dr. Flores has accepted him in [facility]. He is getting FFP, Vit K and PRBC 's. - Diagnoses Provider Diagnoses: Upper GI hemorrhage - Critical Care Time Critical Care Time: 30-74 min Discharge - Discharge Plan Condition: Stable Disposition: TRANS HIGHER LVL OF CARE FAC Referrals: Mukesh Calles MD [Primary Care Provider] - The documentation as recorded by the Juan A valencia Julia accurately reflects the service I personally performed and the decisions made by me, Brett Barnett MD.
[2017-07-02 00:12] VITALS: BP 111/63
== END | disposition short-term general hospital (02) ==
LOC: ED 16:29
DX: K92.2 Gastrointestinal hemorrhage, unspecified (principal); R07.89 Other chest pain; Z87.891 Personal history of nicotine dependence
CPT/HCPCS: 36415; 36430; 71010; 80053; 82272; 83605; 83880; 84484; 85025; 85610; 86850; 86900; 86901; 86922; 86927; 93005; 96372; 96374; 99285; J3430; P9017; P9040

== ENCOUNTER 2017-10-23 10:36 | Day surgery (SDC) | payer MEDICARE ==
[~2017-10-23 10:36] MED LIST changes: +Buffered Lidocaine 0.9% SYRIN* 5 ML/SYR SYRINGE INTRADERM ONE; +Bupivacaine 0.25% SDV* 30 ML ONE; +Lidocain 1% EPI 1:100,000 * 30 ML MDV ONE; +Mineral Oil Sterile, TOPICAL* 25 ML BTL ONE; -Phytonadione INJ (Adult)* 10 MG/ML 1 ML AMP IM ONE; -Phytonadione INJ (Adult)* 10 MG/ML 1 ML AMP IV ONE; -Phytonadione INJ* 1 MG/0.5 ML ML IM ONE
[2017-10-23] MEDS ORDERED: ceFAZolin 2 GM PREMIX (*) 2 GM/50 ML BAG IVPB ONE (10:47)
[2017-10-23] MEDS ORDERED: Buffered Lidocaine 0.9% SYRIN* 5 ML/SYR SYRINGE ONE (10:47)
[2017-10-23] MEDS ORDERED: fentaNYL* 50 MCG/ML 2 ML VIAL (100 MCG VIAL) ONE (13:49)
[2017-10-23] MEDS ORDERED: Midazolam* 1 MG/ML 2 ML VIAL (2 MG) ONE ×2 (13:49→14:50)
[2017-10-23] MEDS ORDERED: Naloxone* 0.4 MG/ML 1 ML VIAL IV PRN (14:11)
[2017-10-23 15:39] VITALS: BP 112/67
== END 2017-10-23 15:52 | disposition home or self-care (01) ==
LOC: OR 10:36
PROVIDERS: ATTEND Plastic Surgery
DX: C44.321 Squamous cell carcinoma of skin of nose (principal); I48.91 Unspecified atrial fibrillation; Z79.01 Long term (current) use of anticoagulants; Z87.891 Personal history of nicotine dependence; I35.0 Nonrheumatic aortic (valve) stenosis; E78.5 Hyperlipidemia, unspecified; G47.33 Obstructive sleep apnea (adult) (pediatric)
CPT/HCPCS: 88305; 88331; 88332; A9270-GY; J0690; J2250; J3010

== ENCOUNTER 2021-06-26 15:02 | Inpatient (IN) ==
[2021-06-26] MEDS ORDERED: NS 0.9% 1000 ml BAG 1,000 ML IV ONE ×2 (15:38→17:56)
[2021-06-26] MEDS ORDERED: NS 0.9% 1000 ml BAG 1,000 ML IV SCH (15:45)
[2021-06-26 17:22] LABS: Hematocrit 34 % (42-52); Hemoglobin 10.5 g/dL (14.0-18.0); Mean Corpuscular HGB Conc 32 g/dL (31-36); Mean Corpuscular Hemoglobin 29 pg (27-31); Mean Corpuscular Volume 91 fL (80-94); Mean Platelet Volume 7.4 fL (7.4-10.4); Platelet Count 318 10^3/uL (150-450); Red Blood Count 3.66 10^6 /uL (4.18-5.48); Red Cell Distribution Width 15 % (10-15); White Blood Count 27.3 10^3/uL (3.5-10.8)
[2021-06-26 17:34] LABS: Urine Appearance Cloudy; Urine Bilirubin Negative (Negative); Urine Blood 1+ (Negative); Urine Color Yellow; Urine Glucose Negative (Negative); Urine Ketones Negative (Negative); Urine Nitrite Negative (Negative); Urine Protein 2+(100 mg/dL) (Negative); Urine Specific Gravity 1.014 (1.002-1.030); Urine Urobilinogen Negative (Negative)
[2021-06-26 17:37] LABS: ALT 17 U/L (7-52); AST 16 U/L (13-39); Albumin 3.4 g/dL (3.2-5.2); Albumin/Globulin Ratio 1.1 (1-3); Alkaline Phosphatase 95 U/L (35-149); Anion Gap 7 mmol/L (2-11); Blood Urea Nitrogen 34 mg/dL (6-24); C Reactive Protein 121.35 mg/L (<8.01); CO2 Carbon Dioxide 26 mmol/L (22-32); Calcium 9.5 mg/dL (8.6-10.3); Chloride 104 mmol/L (101-111); Globulin 3.2 g/dL (2-4); Glucose 117 mg/dL (70-100); Potassium 4.8 mmol/L (3.5-5.0); Sodium 137 mmol/L (135-145); Total Protein 6.6 g/dL (6.4-8.9); eGFR CKD-EPI 46.4 (>60)
[2021-06-26] MEDS ORDERED: cefTRIAXone 1 gm/50 mL NS BAG 1 GM/50 ML BAG IV ONE (17:39)
[2021-06-26 17:45] LABS: Urine Amorphous Crystals Present (Absent); Urine Bacteria 3+ (Absent); Urine Red Blood Cell 3+(>10/hpf) (Absent); Urine Squamous Epithelial Cell Present (Absent); Urine White Blood Cell 3+(>20/hpf) (Absent)
[2021-06-26] MEDS ORDERED: Piperacillin/Tazobac 3.375 GM BAG ONE (17:50)
[2021-06-26] MEDS ORDERED: Piperacillin/Tazobac ADVAN 3.375 GM in NS 0.9% 100 ml BAG 100 ML IV ONE (17:50)
[2021-06-26 17:55] LABS: Activated Partial Thrombo Time 32.9 seconds (26.0-38.0); INR 2.04 (0.86-1.15)
[2021-06-26 18:01] LABS: Troponin I 0.08 ng/mL (<0.03)
[2021-06-26 18:08] LABS: RBC Morphology Normal (Normal)
[2021-06-26] MEDS ORDERED: Zosyn per Pharmacy NOTE FOLLOW UP SCH (19:00)
[2021-06-26] MEDS ORDERED: Vancomycin per Pharmacy 1 EA NOTE FOLLOW UP SCH (19:00)
[2021-06-26] MEDS: Lactated Ringers 1000 ml BAG 1,000 ML IV ONE ×2 (19:05→23:11)
[2021-06-26] MEDS: Vancomycin 1,000 MG in NS 0.9% 250 ml 250 ML IVPB ONE ×2 (20:26→22:17)
[2021-06-26 23:03] LABS: Troponin I 0.08 ng/mL (<0.03)
[2021-06-26] MEDS ORDERED: Lactated Ringers 500 ml BAG 500 ML IV ONE (23:05)
[2021-06-26] MEDS: Norepinephrine 16MCG/ML BAG NS 4,000 MCG/250 ML BAG IV SCH (23:45)
[2021-06-26] MEDS: ZOSYN 3.375 GM Q8H per EXTENDED INFUSION IV SCH (23:50)
[2021-06-27 04:24] LABS: Hematocrit 29 % (42-52); Hemoglobin 9.1 g/dL (14.0-18.0); Mean Corpuscular HGB Conc 32 g/dL (31-36); Mean Corpuscular Hemoglobin 29 pg (27-31); Mean Corpuscular Volume 91 fL (80-94); Mean Platelet Volume 7.3 fL (7.4-10.4); Platelet Count 228 10^3/uL (150-450); Red Blood Count 3.15 10^6 /uL (4.18-5.48); Red Cell Distribution Width 15 % (10-15)
[2021-06-27 04:40] LABS: Albumin 2.7 g/dL (3.2-5.2); Calcium 8.6 mg/dL (8.6-10.3); Globulin 2.7 g/dL (2-4); Magnesium 1.6 mg/dL (1.9-2.7); Phosphorus 2.5 mg/dL (2.5-5.0); Total Bilirubin 0.6 mg/dL (0.2-1.0); Total Protein 5.4 g/dL (6.4-8.9); eGFR CKD-EPI 39.3 (>60)
[2021-06-27] MEDS ORDERED: Magnesium Sulfate 2 gm BAG 2 GM/50 ML BAG IVPB ONE ×2 (05:35→07:29)
[2021-06-27] MEDS: ZOSYN 3.375 GM Q8H per EXTENDED INFUSION IV SCH (06:52)
[2021-06-27] MEDS: Norepinephrine 16MCG/ML BAG NS 4,000 MCG/250 ML BAG IV SCH (08:24)
[2021-06-27] MEDS: Hydrocortisone INJ 100 MG/2ML 2 ML VIAL IV SCH ×2 (12:54→19:45)
[2021-06-27] MEDS: cefTRIAXone 1 gm/50 mL NS BAG 1 GM/50 ML BAG IVPB SCH (13:08)
[2021-06-27] MEDS ORDERED: Vancomycin 1,250 MG in NS 0.9% 250 ml 250 ML IVPB SCH (16:00)
[2021-06-27] MEDS: diPHENhydraMINE 25 mg TAB PO PRN ×2 (21:16→23:01)
[2021-06-28] MEDS: Hydrocortisone INJ 100 MG/2ML 2 ML VIAL IV SCH ×3 (02:48→19:33)
[2021-06-28 04:50] LABS: Hematocrit 28 % (42-52); Hemoglobin 8.9 g/dL (14.0-18.0); Mean Corpuscular HGB Conc 32 g/dL (31-36); Mean Corpuscular Hemoglobin 29 pg (27-31); Mean Corpuscular Volume 90 fL (80-94); Mean Platelet Volume 7.6 fL (7.4-10.4); Platelet Count 145 10^3/uL (150-450); Red Blood Count 3.07 10^6 /uL (4.18-5.48); Red Cell Distribution Width 15 % (10-15); White Blood Count 22.6 10^3/uL (3.5-10.8)
[2021-06-28 05:02] LABS: ABS Lymphocytes 0.5 10^3/ul (1.0-4.8); ABS Monocytes 1.3 10^3/ul (0-0.8); ABS Neutrophils 20.8 10^3/ul (1.5-7.7); Lymphocyte % 2.1 %
[2021-06-28 05:06] LABS: Calcium 8.6 mg/dL (8.6-10.3); Magnesium 2.5 mg/dL (1.9-2.7); Phosphorus 3.5 mg/dL (2.5-5.0); Potassium 4.2 mmol/L (3.5-5.0); eGFR CKD-EPI 61.2 (>60)
[2021-06-28] MEDS ORDERED: Flu vaccine *QUAD* 2021-22* 0.5 ML SYRINGE IM ONE (09:00)
[2021-06-28] MEDS: cefTRIAXone 1 gm/50 mL NS BAG 1 GM/50 ML BAG IVPB SCH (13:37)
[2021-06-28] MEDS: Oral Rinse (Biotene)(NF) 237 ML or 473 ML ORAL RINSE BTL MT PRN (16:55)
[2021-06-29] MEDS: Hydrocortisone INJ 100 MG/2ML 2 ML VIAL IV SCH ×3 (02:07→22:07)
[2021-06-29 05:43] LABS: Hematocrit 30 % (42-52); Hemoglobin 9.7 g/dL (14.0-18.0); Mean Corpuscular HGB Conc 32 g/dL (31-36); Mean Corpuscular Hemoglobin 29 pg (27-31); Mean Corpuscular Volume 90 fL (80-94); Mean Platelet Volume 8.3 fL (7.4-10.4); Platelet Count 135 10^3/uL (150-450); Red Blood Count 3.33 10^6 /uL (4.18-5.48); Red Cell Distribution Width 15 % (10-15)
[2021-06-29 05:55] LABS: ABS Lymphocytes 0.7 10^3/ul (1.0-4.8); ABS Monocytes 0.9 10^3/ul (0-0.8); ABS Neutrophils 21.4 10^3/ul (1.5-7.7); Eosinophil % 0.1 %
[2021-06-29 06:09] LABS: Potassium 4.2 mmol/L (3.5-5.0); eGFR CKD-EPI 67.1 (>60)
[2021-06-29] MEDS: Oral Rinse (Biotene)(NF) 237 ML or 473 ML ORAL RINSE BTL MT PRN (07:39)
[2021-06-29] MEDS: cefTRIAXone 1 gm/50 mL NS BAG 1 GM/50 ML BAG IVPB SCH (10:29)
[2021-06-29] MEDS ORDERED: Vancomycin Trough Check NOTE FOLLOW UP ONE (15:30)
[2021-06-30 08:46] LABS: Hematocrit 31 % (42-52); Mean Corpuscular HGB Conc 32 g/dL (31-36); Mean Corpuscular Hemoglobin 28 pg (27-31); Mean Corpuscular Volume 89 fL (80-94); Mean Platelet Volume 9.3 fL (7.4-10.4); Platelet Count 133 10^3/uL (150-450); Red Cell Distribution Width 16 % (10-15)
[2021-06-30 08:48] LABS: ABS Basophils 0.1 10^3/ul (0-0.2); ABS Lymphocytes 1.1 10^3/ul (1.0-4.8); ABS Monocytes 1.3 10^3/ul (0-0.8); ABS Neutrophils 19.4 10^3/ul (1.5-7.7); Eosinophil % 0.2 %; Lymphocyte % 4.9 %; Nucleated Red Blood Cells % 0.1
[2021-06-30] MEDS: Hydrocortisone INJ 100 MG/2ML 2 ML VIAL IV SCH ×2 (08:53→20:59)
[2021-06-30 09:09] LABS: Troponin I 0.04 ng/mL (<0.03)
[2021-06-30] MEDS: cefTRIAXone 1 gm/50 mL NS BAG 1 GM/50 ML BAG IVPB SCH (12:15)
[2021-06-30] MEDS ORDERED: Lidocaine 2% JELLY 6 ML TOPICAL PRN (15:18)
[2021-07-01 05:41] LABS: Hematocrit 31 % (42-52); Hemoglobin 9.8 g/dL (14.0-18.0); Mean Corpuscular HGB Conc 32 g/dL (31-36); Mean Corpuscular Hemoglobin 29 pg (27-31); Mean Corpuscular Volume 90 fL (80-94); Mean Platelet Volume 9.3 fL (7.4-10.4); Platelet Count 123 10^3/uL (150-450); Red Blood Count 3.42 10^6 /uL (4.18-5.48); Red Cell Distribution Width 15 % (10-15); White Blood Count 17.4 10^3/uL (3.5-10.8)
[2021-07-01 05:48] LABS: ABS Lymphocytes 0.9 10^3/ul (1.0-4.8); ABS Monocytes 1.6 10^3/ul (0-0.8); ABS Neutrophils 14.9 10^3/ul (1.5-7.7); Eosinophil % 0.3 %; Lymphocyte % 5.4 %
[2021-07-01] MEDS: Hydrocortisone INJ 100 MG/2ML 2 ML VIAL IV SCH ×2 (11:28→21:39)
[2021-07-01] MEDS: Enoxaparin 100 MG/ML SYR SUBCUT SCH ×2 (11:29→23:21)
[2021-07-01] MEDS: cefTRIAXone 1 gm/50 mL NS BAG 1 GM/50 ML BAG IVPB SCH (11:31)
[2021-07-02] MEDS: Hydrocortisone INJ 100 MG/2ML 2 ML VIAL IV SCH ×2 (08:14→20:26)
[2021-07-02 09:28] LABS: Hematocrit 35 % (42-52); Hemoglobin 11.1 g/dL (14.0-18.0); Mean Corpuscular HGB Conc 32 g/dL (31-36); Mean Corpuscular Hemoglobin 29 pg (27-31); Mean Corpuscular Volume 90 fL (80-94); Mean Platelet Volume 9.1 fL (7.4-10.4); Platelet Count 161 10^3/uL (150-450); Red Blood Count 3.84 10^6 /uL (4.18-5.48); Red Cell Distribution Width 15 % (10-15); White Blood Count 20.9 10^3/uL (3.5-10.8)
[2021-07-02 09:38] LABS: Calcium 8.9 mg/dL (8.6-10.3); Potassium 3.9 mmol/L (3.5-5.0); eGFR CKD-EPI 89.4 (>60)
[2021-07-02 11:11] LABS: ABS Basophils 0.1 10^3/ul (0-0.2); ABS Eosinophils 0.1 10^3/ul (0-0.6); ABS Lymphocytes 1.6 10^3/ul (1.0-4.8); ABS Monocytes 2.1 10^3/ul (0-0.8); ABS Neutrophils 17.1 10^3/ul (1.5-7.7); Eosinophil % 0.4 %; Lymphocyte % 7.5 %
[2021-07-02] MEDS: cefTRIAXone 2 GM ADDV.VIAL 2 GM in NS 0.9% 100 ml BAG 100 ML IV SCH (12:13)
[2021-07-02] MEDS: Enoxaparin 100 MG/ML SYR SUBCUT SCH (12:13)
[2021-07-02 22:51] LABS: Troponin I 0.04 ng/mL (<0.03)
[2021-07-03] MEDS: Enoxaparin 100 MG/ML SYR SUBCUT SCH ×3 (00:56→22:38)
[2021-07-03 01:36] LABS: Troponin I 0.04 ng/mL (<0.03)
[2021-07-03 05:16] LABS: Troponin I 0.04 ng/mL (<0.03)
[2021-07-03] MEDS ORDERED: Hydrocortisone INJ 100 MG/2ML 2 ML VIAL IV SCH (09:00)
[2021-07-03] MEDS: cefTRIAXone 2 GM ADDV.VIAL 2 GM in NS 0.9% 100 ml BAG 100 ML IV SCH (11:43)
[2021-07-04 06:07] LABS: Hematocrit 33 % (42-52); Hemoglobin 10.6 g/dL (14.0-18.0); Mean Corpuscular HGB Conc 32 g/dL (31-36); Mean Corpuscular Hemoglobin 29 pg (27-31); Mean Corpuscular Volume 89 fL (80-94); Mean Platelet Volume 8.4 fL (7.4-10.4); Platelet Count 165 10^3/uL (150-450); Red Blood Count 3.71 10^6 /uL (4.18-5.48); Red Cell Distribution Width 16 % (10-15); White Blood Count 15.2 10^3/uL (3.5-10.8)
[2021-07-04 06:33] LABS: ABS Basophils 0.1 10^3/ul (0-0.2); ABS Eosinophils 0.5 10^3/ul (0-0.6); ABS Lymphocytes 1.4 10^3/ul (1.0-4.8); ABS Monocytes 1.3 10^3/ul (0-0.8); ABS Neutrophils 12.1 10^3/ul (1.5-7.7); Calcium 8.5 mg/dL (8.6-10.3); Eosinophil % 3.1 %; Magnesium 1.9 mg/dL (1.9-2.7); Potassium 3.9 mmol/L (3.5-5.0); eGFR CKD-EPI 80.4 (>60)
[2021-07-04] MEDS ORDERED: Rocuronium 50 mg VIAL 10 mg/ml 5 ml VIAL (50 mg) ONE (07:18)
[2021-07-04] MEDS ORDERED: Lidocaine 2% PF 5 ML VIAL ONE (07:18)
[2021-07-04] MEDS ORDERED: Propofol 10 MG/ML 20 ML BTL ONE (07:18)
[2021-07-04] MEDS ORDERED: Midazolam 2 mg/2 ml VIAL 1 mg/ml 2 ml VIAL (2 mg) ONE (07:18)
[2021-07-04] MEDS ORDERED: fentaNYL 250 mcg/5 ml 50 MCG/ML 5 ml VIAL (250 MCG) ONE (07:19)
[2021-07-04] MEDS ORDERED: ceFAZolin 2 GM in NS PREMIX 2 GM/100 ML BAG IVPB ONE (08:28)
[2021-07-04] MEDS ORDERED: Bupivacaine 0.5% 50 ML MDV VIAL ONE (08:33)
[2021-07-04] MEDS ORDERED: Famotidine IV 10 MG/ML 2 ml VIAL (20 mg) IV ONE (08:37)
[2021-07-04] MEDS ORDERED: Famotidine IV 10 MG/ML 2 ml VIAL (20 mg) ONE (08:55)
[2021-07-04] MEDS ORDERED: Hydrocortisone INJ 100 MG/2ML 2 ML VIAL IV SCH (09:00)
[2021-07-04] MEDS ORDERED: Lactated Ringers 1000 ml BAG 1,000 ML IV SCH (09:00)
[2021-07-04] MEDS ORDERED: Dexamethasone IV 4 MG/ML VIAL 1 ml VIAL ONE (10:18)
[2021-07-04] MEDS ORDERED: EPHEDrine (Pressors) 50 MG/ML VIAL ONE (10:18)
[2021-07-04] MEDS ORDERED: Phenylephrine IV 10 MG/ML 1 ml VIAL ONE (10:20)
[2021-07-04] MEDS ORDERED: Phenylephrine 40 mcg/mL 10mL (400mcg) SYRINGE ONE (10:20)
[2021-07-04] MEDS ORDERED: Vancomycin 1,000 MG VIAL ONE (10:52)
[2021-07-04] MEDS ORDERED: Acetaminophen IV 1 GM/100ML VI 100 ML ONE (12:26)
[2021-07-04] MEDS ORDERED: DiMENhydriNATE IV 50 mg/ml 1 ml VIAL IV PUSH PRN (13:09)
[2021-07-04] MEDS ORDERED: Naloxone 0.4 mg VIAL 0.4 mg/ml 1 ml VIAL IV PRN (13:09)
[2021-07-04] MEDS ORDERED: fentaNYL 100 mcg/2 ml 50 MCG/ML VIAL IV PRN (13:09)
[2021-07-04] MEDS ORDERED: fentaNYL 100 mcg/2 ml 50 MCG/ML VIAL ONE (13:39)
[2021-07-04] MEDS ORDERED: HYDROmorphone 0.5 MG/0.5 ML SYRINGE IV PRN (15:09)
[2021-07-04] MEDS: cefTRIAXone 2 GM ADDV.VIAL 2 GM in NS 0.9% 100 ml BAG 100 ML IV SCH (16:41)
[2021-07-04] MEDS ORDERED: cefTRIAXone 2 GM ADDV.VIAL 2 GM in NS 0.9% 100 ml BAG 100 ML IV SCH (18:00)
[2021-07-04] MEDS: oxyCODONE/Acetamin 5/325 mg TAB PO PRN (21:58)
[2021-07-05 06:24] LABS: Hematocrit 29 % (42-52); Hemoglobin 9.2 g/dL (14.0-18.0); Mean Corpuscular HGB Conc 32 g/dL (31-36); Mean Corpuscular Hemoglobin 29 pg (27-31); Mean Corpuscular Volume 90 fL (80-94); Mean Platelet Volume 8.8 fL (7.4-10.4); Platelet Count 165 10^3/uL (150-450); Red Blood Count 3.15 10^6 /uL (4.18-5.48); Red Cell Distribution Width 16 % (10-15); White Blood Count 17.5 10^3/uL (3.5-10.8)
[2021-07-05 06:42] LABS: Calcium 8.1 mg/dL (8.6-10.3); Potassium 4.4 mmol/L (3.5-5.0); eGFR CKD-EPI 77.6 (>60)
[2021-07-05 07:19] LABS: Anisocytosis 1+; Basophilic Stippling 1+; Polychromasia 1+
[2021-07-05 07:20] LABS: ABS Eosinophils 0.3 10^3/ul (0-0.6); ABS Lymphocytes 1.5 10^3/ul (1.0-4.8); ABS Monocytes 1.4 10^3/ul (0-0.8); ABS Neutrophils 14.3 10^3/ul (1.5-7.7); Eosinophil % 1.7 %; Lymphocyte % 8.5 %
[2021-07-05] MEDS: oxyCODONE/Acetamin 5/325 mg TAB PO PRN (07:27)
[2021-07-05 13:22] LABS: Rapid COVID-19 Molecular Undetected (Undetected)
[2021-07-05 13:40] VITALS: BP 96/52
== END 2021-07-05 14:20 | DRG 981 ==
LOC: ED 15:02 → EDHOLD 18:31 → SUATTDRO 18:31 → ICU 19:49 → SSU 06-29 16:18
PROVIDERS: ADMIT Internal Medicine Critical Care Medicine; ATTEND Hospitalist

== ENCOUNTER 2021-07-08 11:55 | Inpatient (IN) ==
[2021-07-08 13:23] LABS: Hematocrit 21 % (42-52); Hemoglobin 6.8 g/dL (14.0-18.0); Mean Corpuscular HGB Conc 32 g/dL (31-36); Mean Corpuscular Hemoglobin 29 pg (27-31); Mean Corpuscular Volume 90 fL (80-94); Mean Platelet Volume 8.4 fL (7.4-10.4); Platelet Count 198 10^3/uL (150-450); Red Blood Count 2.36 10^6 /uL (4.18-5.48); Red Cell Distribution Width 17 % (10-15); White Blood Count 20.4 10^3/uL (3.5-10.8)
[2021-07-08 13:30] LABS: ABS Basophils 0.1 10^3/ul (0-0.2); ABS Eosinophils 0.4 10^3/ul (0-0.6); ABS Neutrophils 16.9 10^3/ul (1.5-7.7); Eosinophil % 1.9 %; Lymphocyte % 4.8 %
[2021-07-08 13:32] LABS: INR 1.34 (0.86-1.15)
[2021-07-08] MEDS ORDERED: Iodixanol (CONTRAST) 320 MG/ML 100 ML SDV IV ONE (14:07)
[2021-07-08] MEDS ORDERED: cefTRIAXone 2 GM ADDV.VIAL 2 GM in NS 0.9% 100 ml BAG 100 ML IVPB ONE (15:53)
[2021-07-08 16:23] LABS: C Reactive Protein 102.48 mg/L (<8.01)
[2021-07-08 16:46] LABS: Albumin 2.7 g/dL (3.2-5.2); Calcium 8.6 mg/dL (8.6-10.3); Globulin 2.7 g/dL (2-4); Potassium 4.6 mmol/L (3.5-5.0); Total Bilirubin 0.5 mg/dL (0.2-1.0); Total Protein 5.4 g/dL (6.4-8.9); eGFR CKD-EPI 89.1 (>60)
[2021-07-08] MEDS ORDERED: Vancomycin 1,000 MG in NS 0.9% 250 ml 250 ML IVPB ONE (17:58)
[2021-07-08] MEDS ORDERED: Vancomycin per Pharmacy 1 EA NOTE FOLLOW UP SCH (18:00)
[2021-07-08] MEDS: oxyCODONE/Acetamin 5/325 mg TAB PO PRN (18:15)
[2021-07-08] MEDS ORDERED: Vancomycin 1500 MG IV - x ONCE IVPB ONE (22:00)
[2021-07-09] MEDS: oxyCODONE/Acetamin 5/325 mg TAB PO PRN ×3 (03:59→23:00)
[2021-07-09 04:30] LABS: Hematocrit 25 % (42-52); Mean Corpuscular HGB Conc 32 g/dL (31-36); Mean Corpuscular Hemoglobin 29 pg (27-31); Mean Corpuscular Volume 90 fL (80-94); Platelet Count 207 10^3/uL (150-450); Red Blood Count 2.76 10^6 /uL (4.18-5.48); Red Cell Distribution Width 16 % (10-15); White Blood Count 18.9 10^3/uL (3.5-10.8)
[2021-07-09 04:55] LABS: Calcium 8.6 mg/dL (8.6-10.3); Magnesium 2.1 mg/dL (1.9-2.7); Potassium 4.9 mmol/L (3.5-5.0); eGFR CKD-EPI 87.9 (>60)
[2021-07-09] MEDS ORDERED: cefTRIAXone 2 GM ADDV.VIAL 2 GM in NS 0.9% 100 ml BAG 100 ML IV SCH (09:00)
[2021-07-09] MEDS ORDERED: Vancomycin 1000 MG in NS 0.9% 250 ML IVPB SCH (09:00)
[2021-07-09] MEDS: Polyethylene Glycol 3350 17 GM PACKET PO SCH (12:07)
[2021-07-09 21:02] LABS: Urine Appearance Clear; Urine Bilirubin Negative (Negative); Urine Blood 1+ (Negative); Urine Color Yellow; Urine Glucose Negative (Negative); Urine Ketones Negative (Negative); Urine Nitrite Negative (Negative); Urine Protein Negative (Negative); Urine Specific Gravity 1.021 (1.002-1.030); Urine Urobilinogen Negative (Negative)
[2021-07-09 21:11] LABS: Urine Bacteria Absent (Absent); Urine Red Blood Cell 1+(3-5/hpf) (Absent); Urine Squamous Epithelial Cell Present (Absent); Urine White Blood Cell Trace(0-5/hpf) (Absent)
[2021-07-09 21:53] LABS: Hematocrit 23 % (42-52); Hemoglobin 7.5 g/dL (14.0-18.0)
[2021-07-10 05:17] LABS: Hematocrit 21 % (42-52); Mean Corpuscular HGB Conc 33 g/dL (31-36); Mean Corpuscular Hemoglobin 29 pg (27-31); Mean Corpuscular Volume 90 fL (80-94); Mean Platelet Volume 7.6 fL (7.4-10.4); Platelet Count 198 10^3/uL (150-450); Red Blood Count 2.38 10^6 /uL (4.18-5.48); Red Cell Distribution Width 16 % (10-15); White Blood Count 13.6 10^3/uL (3.5-10.8)
[2021-07-10] MEDS ORDERED: Vancomycin Trough Check NOTE FOLLOW UP ONE (08:30)
[2021-07-10] MEDS: Polyethylene Glycol 3350 17 GM PACKET PO SCH (11:13)
[2021-07-10 14:29] LABS: Hematocrit 24 % (42-52); Hemoglobin 7.6 g/dL (14.0-18.0); Mean Corpuscular HGB Conc 32 g/dL (31-36); Mean Corpuscular Hemoglobin 29 pg (27-31); Mean Corpuscular Volume 91 fL (80-94); Mean Platelet Volume 7.4 fL (7.4-10.4); Platelet Count 225 10^3/uL (150-450); Red Blood Count 2.61 10^6 /uL (4.18-5.48); Red Cell Distribution Width 17 % (10-15); White Blood Count 13.3 10^3/uL (3.5-10.8)
[2021-07-10 14:57] LABS: Erythrocyte Sed Rate 40 mm/Hr (0-19)
[2021-07-10] MEDS: oxyCODONE/Acetamin 5/325 mg TAB PO PRN (17:53)
[2021-07-10 20:13] LABS: Hematocrit 24 % (42-52); Hemoglobin 7.4 g/dL (14.0-18.0); Mean Corpuscular HGB Conc 32 g/dL (31-36); Mean Corpuscular Hemoglobin 28 pg (27-31); Mean Corpuscular Volume 90 fL (80-94); Mean Platelet Volume 8.1 fL (7.4-10.4); Platelet Count 225 10^3/uL (150-450); Red Blood Count 2.61 10^6 /uL (4.18-5.48); Red Cell Distribution Width 17 % (10-15); White Blood Count 13.6 10^3/uL (3.5-10.8)
[2021-07-11] MEDS: oxyCODONE/Acetamin 5/325 mg TAB PO PRN ×3 (01:09→21:33)
[2021-07-11 05:07] LABS: Hematocrit 22 % (42-52); Hemoglobin 7.2 g/dL (14.0-18.0); Mean Corpuscular HGB Conc 33 g/dL (31-36); Mean Corpuscular Hemoglobin 30 pg (27-31); Mean Corpuscular Volume 90 fL (80-94); Mean Platelet Volume 7.4 fL (7.4-10.4); Platelet Count 206 10^3/uL (150-450); Red Blood Count 2.43 10^6 /uL (4.18-5.48); Red Cell Distribution Width 17 % (10-15); White Blood Count 12.3 10^3/uL (3.5-10.8)
[2021-07-11 05:10] LABS: ABS Basophils 0.1 10^3/ul (0-0.2); ABS Eosinophils 0.4 10^3/ul (0-0.6); ABS Lymphocytes 1.1 10^3/ul (1.0-4.8); ABS Monocytes 1.9 10^3/ul (0-0.8); ABS Neutrophils 8.8 10^3/ul (1.5-7.7); Eosinophil % 3.1 %; Lymphocyte % 9.2 %
[2021-07-11 05:24] LABS: Magnesium 1.8 mg/dL (1.9-2.7); Potassium 4.3 mmol/L (3.5-5.0); eGFR CKD-EPI 85.6 (>60)
[2021-07-11] MEDS ORDERED: Lidocaine 2% PF 5 ML VIAL ONE (08:33)
[2021-07-11] MEDS ORDERED: Propofol 10 MG/ML 20 ML BTL ONE ×2 (08:33→21:43)
[2021-07-11] MEDS ORDERED: Rocuronium 50 mg VIAL 10 mg/ml 5 ml VIAL (50 mg) ONE (08:33)
[2021-07-11] MEDS: Polyethylene Glycol 3350 17 GM PACKET PO SCH (09:34)
[2021-07-11] MEDS ORDERED: NS 0.9% 1000 ml BAG 1,000 ML IV SCH (13:45)
[2021-07-11 15:42] LABS: Hematocrit 28 % (42-52); Hemoglobin 8.9 g/dL (14.0-18.0); Mean Corpuscular HGB Conc 32 g/dL (31-36); Mean Corpuscular Hemoglobin 29 pg (27-31); Mean Corpuscular Volume 91 fL (80-94); Mean Platelet Volume 7.5 fL (7.4-10.4); Platelet Count 231 10^3/uL (150-450); Red Blood Count 3.05 10^6 /uL (4.18-5.48); Red Cell Distribution Width 17 % (10-15)
[2021-07-11] MEDS ORDERED: Bupivacaine 0.5% SDV PF 30ML VIAL ONE (15:50)
[2021-07-11] MEDS ORDERED: fentaNYL 100 mcg/2 ml 50 MCG/ML VIAL ONE (15:52)
[2021-07-11 16:44] LABS: ABS Basophils 0.1 10^3/ul (0-0.2); ABS Eosinophils 0.2 10^3/ul (0-0.6); ABS Lymphocytes 0.8 10^3/ul (1.0-4.8); ABS Monocytes 1.6 10^3/ul (0-0.8); ABS Neutrophils 9.4 10^3/ul (1.5-7.7); Lymphocyte % 6.6 %
[2021-07-11 16:45] LABS: Anisocytosis 1+; Polychromasia 1+
[2021-07-11] MEDS ORDERED: ceFAZolin VIAL VIAL ONE ×2 (17:33)
[2021-07-11] MEDS ORDERED: ceFAZolin 2 GM in NS PREMIX 2 GM/100 ML BAG IVPB ONE (17:34)
[2021-07-11] MEDS ORDERED: Acetaminophen IV 1 GM/100ML 100 ML IV ONE (18:08)
[2021-07-11] MEDS ORDERED: DiMENhydriNATE IV 50 mg/ml 1 ml VIAL IV PUSH PRN (18:28)
[2021-07-11] MEDS ORDERED: Naloxone 0.4 mg VIAL 0.4 mg/ml 1 ml VIAL IV PRN (18:28)
[2021-07-11] MEDS ORDERED: HYDROmorphone 0.5 MG/0.5 ML SYRINGE ONE ×2 (18:45→19:31)
[2021-07-11] MEDS ORDERED: HYDROmorphone 1 MG/1 ML SYRINGE ONE (20:18)
[2021-07-11] MEDS: HYDROmorphone 1 MG/1 ML SYRINGE IV PRN ×5 (20:20→20:40)
[2021-07-11 20:22] LABS: Hematocrit 31 % (42-52); Hemoglobin 10.2 g/dL (14.0-18.0); Mean Corpuscular HGB Conc 33 g/dL (31-36); Mean Corpuscular Hemoglobin 30 pg (27-31); Mean Corpuscular Volume 91 fL (80-94); Mean Platelet Volume 7.4 fL (7.4-10.4); Platelet Count 229 10^3/uL (150-450); Red Blood Count 3.46 10^6 /uL (4.18-5.48); Red Cell Distribution Width 16 % (10-15)
[2021-07-11] MEDS ORDERED: Phenylephrine IV 10 MG/ML 1 ml VIAL ONE (21:43)
[2021-07-11] MEDS ORDERED: Succinylcholine 200 mg VIAL 20 mg/ml 10 ml VIAL (200 mg) ONE (21:43)
[2021-07-11] MEDS ORDERED: Dexamethasone IV 4 MG/ML VIAL 1 ml VIAL ONE (21:43)
[2021-07-11] MEDS ORDERED: Ondansetron 4 mg VIAL 2 MG/ML 2 ml VIAL ONE (21:43)
[2021-07-12] MEDS: oxyCODONE/Acetamin 5/325 mg TAB PO PRN ×3 (05:47→20:13)
[2021-07-12 06:47] LABS: ABS Lymphocytes 0.7 10^3/ul (1.0-4.8); ABS Monocytes 0.9 10^3/ul (0-0.8); ABS Neutrophils 10.8 10^3/ul (1.5-7.7); Hematocrit 29 % (42-52); Hemoglobin 9.6 g/dL (14.0-18.0); Lymphocyte % 5.6 %; Mean Corpuscular HGB Conc 33 g/dL (31-36); Mean Corpuscular Hemoglobin 30 pg (27-31); Mean Corpuscular Volume 91 fL (80-94); Mean Platelet Volume 7.8 fL (7.4-10.4); Platelet Count 230 10^3/uL (150-450); Red Blood Count 3.19 10^6 /uL (4.18-5.48); Red Cell Distribution Width 17 % (10-15); White Blood Count 12.4 10^3/uL (3.5-10.8)
[2021-07-12 07:07] LABS: Calcium 8.4 mg/dL (8.6-10.3); Magnesium 1.9 mg/dL (1.9-2.7); Potassium 4.7 mmol/L (3.5-5.0); eGFR CKD-EPI 82.4 (>60)
[2021-07-12] MEDS: Polyethylene Glycol 3350 17 GM PACKET PO SCH (08:57)
[2021-07-12] MEDS ORDERED: Vancomycin per Pharmacy 1 EA NOTE FOLLOW UP PRN (17:34)
[2021-07-12] MEDS: Vancomycin 1,000 MG in NS 0.9% 250 ml 250 ML IVPB SCH (18:50)
[2021-07-13 05:23] LABS: Hematocrit 25 % (42-52); Hemoglobin 7.9 g/dL (14.0-18.0); Mean Corpuscular HGB Conc 32 g/dL (31-36); Mean Corpuscular Hemoglobin 30 pg (27-31); Mean Corpuscular Volume 92 fL (80-94); Mean Platelet Volume 7.5 fL (7.4-10.4); Platelet Count 194 10^3/uL (150-450); Red Blood Count 2.68 10^6 /uL (4.18-5.48); Red Cell Distribution Width 17 % (10-15); White Blood Count 12.5 10^3/uL (3.5-10.8)
[2021-07-13 05:27] LABS: ABS Basophils 0.1 10^3/ul (0-0.2); ABS Eosinophils 0.3 10^3/ul (0-0.6); ABS Lymphocytes 1.1 10^3/ul (1.0-4.8); ABS Monocytes 1.6 10^3/ul (0-0.8); ABS Neutrophils 9.4 10^3/ul (1.5-7.7); Eosinophil % 2.4 %; Lymphocyte % 8.7 %
[2021-07-13 05:40] LABS: Albumin 2.4 g/dL (3.2-5.2); Albumin/Globulin Ratio 1.1 (1-3); C Reactive Protein 50.75 mg/L (<8.01); Calcium 7.8 mg/dL (8.6-10.3); Globulin 2.2 g/dL (2-4); Potassium 4.7 mmol/L (3.5-5.0); Total Bilirubin 0.4 mg/dL (0.2-1.0); Total Protein 4.6 g/dL (6.4-8.9); eGFR CKD-EPI 83.5 (>60)
[2021-07-13] MEDS: Vancomycin 1,000 MG in NS 0.9% 250 ml 250 ML IVPB SCH ×2 (05:52→17:51)
[2021-07-13 06:10] LABS: Magnesium 1.9 mg/dL (1.9-2.7)
[2021-07-13] MEDS: oxyCODONE/Acetamin 5/325 mg TAB PO PRN ×3 (06:10→19:53)
[2021-07-13 06:31] LABS: Erythrocyte Sed Rate 18 mm/Hr (0-19)
[2021-07-13] MEDS ORDERED: Magnesium Sulfate 2 gm BAG 2 GM/50 ML BAG IVPB ONE (07:15)
[2021-07-13] MEDS: Polyethylene Glycol 3350 17 GM PACKET PO SCH (08:55)
[2021-07-14] MEDS ORDERED: Vancomycin Trough Check NOTE FOLLOW UP ONE (05:30)
[2021-07-14 08:04] LABS: ABS Basophils 0.1 10^3/ul (0-0.2); ABS Eosinophils 0.4 10^3/ul (0-0.6); ABS Monocytes 1.4 10^3/ul (0-0.8); ABS Neutrophils 6.6 10^3/ul (1.5-7.7); Eosinophil % 3.8 %; Hematocrit 25 % (42-52); Hemoglobin 8.1 g/dL (14.0-18.0); Mean Corpuscular HGB Conc 33 g/dL (31-36); Mean Corpuscular Hemoglobin 30 pg (27-31); Mean Corpuscular Volume 92 fL (80-94); Mean Platelet Volume 7.6 fL (7.4-10.4); Platelet Count 175 10^3/uL (150-450); Red Blood Count 2.71 10^6 /uL (4.18-5.48); Red Cell Distribution Width 17 % (10-15); White Blood Count 9.5 10^3/uL (3.5-10.8)
[2021-07-14 08:14] LABS: Albumin 2.5 g/dL (3.2-5.2); Albumin/Globulin Ratio 1.1 (1-3); Calcium 8.1 mg/dL (8.6-10.3); Globulin 2.3 g/dL (2-4); Potassium 4.6 mmol/L (3.5-5.0); Total Bilirubin 0.5 mg/dL (0.2-1.0); Total Protein 4.8 g/dL (6.4-8.9); eGFR CKD-EPI 91.9 (>60)
[2021-07-14] MEDS: Vancomycin 1,000 MG in NS 0.9% 250 ml 250 ML IVPB SCH ×2 (09:22→21:47)
[2021-07-14] MEDS: oxyCODONE/Acetamin 5/325 mg TAB PO PRN ×2 (09:26→23:11)
[2021-07-14] MEDS: Polyethylene Glycol 3350 17 GM PACKET PO SCH (09:27)
[2021-07-15] MEDS: Vancomycin 1,000 MG in NS 0.9% 250 ml 250 ML IVPB SCH (06:45)
[2021-07-15] MEDS: Polyethylene Glycol 3350 17 GM PACKET PO SCH (09:02)
[2021-07-15 15:54] VITALS: BP 115/57
[2021-07-15] MEDS: oxyCODONE/Acetamin 5/325 mg TAB PO PRN (16:47)
[2021-07-18] MEDS ORDERED: Vancomycin Trough Check NOTE FOLLOW UP ONE (05:30)
== END 2021-07-15 16:51 | DRG 498 ==
LOC: ED 11:55 → EDHOLD 16:52 → SUATTDRO 16:52 → MEDTELE 20:28
PROVIDERS: ADMIT Internal Medicine; ATTEND Student in an Organized Health Care Education/Training Program